=== PATIENT | male | born 1995 | race Two or more races ===

== ENCOUNTER 2022-05-22 12:24 | Emergency (ER) | payer OTHER ==
[~2022-05-22] VITALS: Ht 165.1 cm; Wt 72.0 kg
[2022-05-22 12:48] VITALS: BP 135/71
== END 2022-05-22 20:10 | disposition left against medical advice (07) ==
LOC: EDBD 12:24 → ER 12:24
DX: R55 Syncope and collapse (principal); F15.10 Other stimulant abuse, uncomplicated; F17.210 Nicotine dependence, cigarettes, uncomplicated; R42 Dizziness and giddiness
CPT/HCPCS: 71046